=== PATIENT | female | born 1980 | race Caucasian/White ===

== ENCOUNTER → 2017-07-24 | Outpatient (CLI) | payer OTHER ==
[~2017-07-24] MED LIST: IBU600 PO; PREN-127 PO; PREN-85 PO
[2017-07-24 15:58] LABS: PLATELET COUNT, AUTOMATED 414 K/uL (150-450)
== END ==
LOC: LAB 15:31
PROVIDERS: ATTEND Obstetrics & Gynecology Reproductive Endocrinology
DX: Z01.812 Encounter for preprocedural laboratory examination (principal); E11.9 Type 2 diabetes mellitus without complications
CPT/HCPCS: 36415; 82306; 85025

== ENCOUNTER → 2017-08-18 | Outpatient (CLI) | payer OTHER | LOC: LAB 10:44 | PROVIDERS: ATTEND Orthopaedic Surgery | DX: E55.9 Vitamin D deficiency, unspecified (principal) | CPT/HCPCS: 36415; 82306 ==

== ENCOUNTER → 2017-10-04 | Outpatient (CLI) | payer OTHER | LOC: LAB 14:52 | PROVIDERS: ATTEND Orthopaedic Surgery | DX: Z01.812 Encounter for preprocedural laboratory examination (principal) | CPT/HCPCS: 36415; 83036 ==

== ENCOUNTER → 2018-06-05 | Outpatient (CLI) | payer OTHER | LOC: LAB 11:13 | PROVIDERS: ATTEND Obstetrics & Gynecology Reproductive Endocrinology | DX: Z30.41 Encounter for surveillance of contraceptive pills (principal) | CPT/HCPCS: 36415; 82670; 84144; 84702 ==